=== PATIENT | female | born 1980 | race Caucasian/White ===

== ENCOUNTER 2023-12-24 19:57 | Emergency (ER) | payer MEDICAID ==
[~2023-12-24] VITALS: Ht 167.6 cm; Wt 74.0 kg
[~2023-12-24 19:57] MED LIST: BACL20TA PO; BUSP15TA3 MT; CHOL2000 PO; CYCL10TA21 PO; DULO60CA64 MT; GABA-529 MT; MECL-299 MT; MELO-104 MT; ONDA4TAB50 PO; PROM25TA13 MT; SUMA100T16 MT; THYR30TA2 MT; TRAM50TA3 PO; UBRO100T PO
[2023-12-24 20:09] VITALS: O2SAT 97
[2023-12-24] MEDS: HYDROXYZINE 25MG TABLET PO ONE (23:18)
[2023-12-25 00:04] VITALS: BP 141/89; PULSE 95; RESP 18; TEMP 98.6
== END 2023-12-25 00:53 | disposition home or self-care (01) ==
LOC: ER 19:57
DX: L29.9 Pruritus, unspecified (principal); J45.909 Unspecified asthma, uncomplicated; Z79.899 Other long term (current) drug therapy; Z86.39 Personal history of other endocrine, nutritional and metabolic disease
CPT/HCPCS: 99283